=== PATIENT | female | born 2000 | race Caucasian/White ===

== ENCOUNTER 2025-04-03 09:40 | Outpatient (CLI) | payer BC, SELFPAY ==
[2025-04-03 13:26] LABS: Chlamydia DNA Amplified* NOT DETECTED (No Detected); GC DNA Amplified* NOT DETECTED (No Detected)
[2025-04-05 10:01] LABS: Pap Test Digital Imaging Done
== END 2025-04-03 09:41 | disposition home or self-care (01) ==
PROVIDERS: Visit Provider Obstetrics & Gynecology
DX: Z00.00 Encounter for general adult medical examination without abnormal findings (principal); Z13.9 Encounter for screening, unspecified; Z12.4 Encounter for screening for malignant neoplasm of cervix
CPT/HCPCS: 80061; 87491; 87591; 87624; 87625; 88141; 88142; 88175